=== PATIENT | male | born 1965 | race Caucasian/White ===

== ENCOUNTER 2018-11-05 01:49 | Emergency (ER) | payer SELFPAY, OTHER | END 2018-11-05 07:37 | disposition home or self-care (01) | LOC: E/R 01:49 | DX: F10.920 Alcohol use, unspecified with intoxication, uncomplicated (principal); R40.2142 Coma scale, eyes open, spontaneous, at arrival to emergency department; R40.2362 Coma scale, best motor response, obeys commands, at arrival to emergency department; R40.2222 Coma scale, best verbal response, incomprehensible words, at arrival to emergency department | CPT/HCPCS: 99283 ==